=== PATIENT | male | born 1970 | race Caucasian/White ===

== ENCOUNTER 2020-01-23 14:53 | Emergency (ER) | payer OTHER, SELFPAY ==
[2020-01-23 15:05] VITALS: BP 123/94; PULSE 74; RESP 20; TEMP 37.2; O2SAT 98; BMI 24.0
--- NOTE | 2020-01-23 15:27 | HMH.EDUTC ---
[facility] [place] Clinical Impression: Dental abscess Disposition: Home, Self-Care Condition on Discharge: Good Instructions: Tooth Abscess Additional Instructions: Drink plenty of fluids. Take tylenol pain or fever. Take the medications as directed. Follow up with your dentist. GO TO THE ER FOR ANY WORSENING SYMPTOMS Prescriptions: Amoxicillin/Potassium Clav [Augmentin 875-125 Tablet] 1 tab PO Q12H 10 Days #20 tab Transmission Status: Received by [facility] Ibuprofen [Ibuprofen 800mg Tablet] 800 mg PO TIDP PRN #30 tab PRN Reason: Moderate Pain Transmission Status: [facility] Referrals: Ja Travis MD [Primary Care Provider] - Time of Disposition: 15:29 Medical Decision Making - Medical Records Medical records reviewed: No: I reviewed the patient's medical records. - [place] Inquiry Pt receiving controlled substance: No Vital Signs: 01/23/20 15:05 01/23/20 15:34 Temperature 98.9 F 98.9 F Temperature Source Oral Oral Pulse Rate 74 Pulse Rate [Right Brachial] 74 Respiratory Rate 20 20 Blood Pressure 123/94 H Blood Pressure [Right Arm] 123/94 H Blood Pressure Mean [Right Arm] 103 Blood Pressure Source Automatic Cuff Blood Pressure Source [Right Arm] Automatic Cuff Blood Pressure Position Sitting Blood Pressure Position [Right Arm] Sitting 02 Sat by Pulse Oximetry 98 Oxygen Delivery Method Room Air Room Air [facility] [place] - General Stated complaint: swollen face, tooth ache Time Seen by Provider: 01/23/20 15:28 Mode of Arrival: Family Vehicle Source of Information: Patient Limitations: No Limitations Description of Symptoms (Recalled from Triage Doc. by RN): c/o swollen face and dental pain HEENT Symptoms (Recalled from RN notes): Yes Resp Symptoms (Recalled from RN notes): No Skin Symptoms (Recalled from RN notes): No MS Symptoms (Recalled from RN notes): No Functional Status (Recalled from RN notes): n/a - History of Present Illness Provider Complaint: He c/o lower front dental pain and swelling over the past week. He has an appointment with his dentist next week. - Related Data Previous Rx's Medication Instructions Recorded Amoxicillin/Potassium Clav 1 tab PO Q12H 10 Days #20 tab 01/23/20 [Augmentin 875-125 Tablet] Ibuprofen [Ibuprofen 800mg 800 mg PO TIDP PRN #30 tab 01/23/20 Tablet] Allergies Allergy/AdvReac Type Severity Reaction Status Date / Time From VICODIN Allergy Unknown MAKES HIM Uncoded 10/03/17 15:18 MBLEED METHADONE Allergy Unknown MAKES HIM Uncoded 10/03/17 15:18 BLEED MUSCLE RELAXER Allergy Unknown MAKES HIM Uncoded 10/03/17 15:18 BLEED NSAID Allergy Unknown MAKES HIM Uncoded 10/03/17 15:18 BLEED OXYCONTN Allergy Unknown MAKES HIM Uncoded 10/03/17 15:18 BLEED - Worker's Comp Is this a Worker's Comp case?: No [facility] History - Hepatitis A Screen Drug use history?: No High risk sexual behaviors?: No History of sexually transmitted infection?: No Currently employed?: No Childcare worker?: No Do you have indoor plumbing?: Yes Do you have electricity?: Yes Attestation statement:: This patient has been screened for Hepatitis A risk factors. I have reviewed the patient's past medical history: Yes - Social History Smoking Status: Current every day smoker Tobacco Type: cigarettes # Packs/Day (cigarettes): 1 Alcohol Intake: never Occupational Status: other ROS Obtained: Yes All systems reviewed & no additional complaints - Constitutional Constitutional: Denies chills, Denies fever(s) - Eyes Eyes: Denies eye discharge - ENT Ears, Nose, Mouth, and Throat: Denies sore throat - Cardiovascular Cardiovascular: Denies chest pain Physical Exam - General General appearance: alert, in no apparent distress - Head Head exam: atraumatic, normocephalic, normal inspection - Eye Eye exam: Present: normal appearance, PERRL, EOMI - ENT ENT exam: Presen
[2020-01-23 15:34] VITALS: BP 123/94; PULSE 74; RESP 20; TEMP 37.2; O2SAT 98
== END 2020-01-23 15:35 | disposition home or self-care (01) ==
PROVIDERS: Emergency Provider Nurse Practitioner Family; PCP Internal Medicine Adolescent Medicine
DX: K04.7 Periapical abscess without sinus (principal); F17.210 Nicotine dependence, cigarettes, uncomplicated; Z88.5 Allergy status to narcotic agent; Z88.8 Allergy status to other drugs, medicaments and biological substances
CPT/HCPCS: 99201

== ENCOUNTER 2022-03-01 10:09 | Emergency (ER) | payer OTHER, SELFPAY ==
--- NOTE | 2022-03-01 10:11 | HMH.EDUTC ---
[facility] [place]ression: Dental abscess Disposition: Home, Self-Care Condition on Discharge: Good Instructions: Tooth Abscess Additional Instructions: Drink plenty of fluids. Take tylenol or ibuprofen for pain or fever. Take the medications as directed. Follow up with your regular doctor. GO TO THE ER FOR ANY WORSENING SYMPTOMS Prescriptions: Amoxicillin/Potassium Clav [Amox-Clav 875-125 mg Tablet] 1 tab PO BID #20 tab Transmission Status: [facility] Referrals: Ja Travis MD [Primary Care Provider] - Time of Disposition: 10:37 Medical Decision Making - Medical Records Medical records reviewed: No: I reviewed the patient's medical records. - [place] Inquiry Pt receiving controlled substance: No Vital Signs: 03/01/22 10:21 03/01/22 10:38 Temperature 97.7 F 97.7 F Temperature Source Oral Pulse Rate 69 Pulse Rate [Left Radial] 69 Respiratory Rate 19 19 Blood Pressure 123/78 Blood Pressure [Right Arm] 123/78 Blood Pressure Mean [Right Arm] 93 02 Sat by Pulse Oximetry 98 [facility] [place] - General Stated complaint: facial swelling Time Seen by Provider: 03/01/22 10:35 - History of Present Illness Provider Complaint: He states that he has an decayed tooth in the bottom front jaw. He has an appointment with his dentist. - Related Data Previous Rx's Medication Instructions Recorded Amoxicillin/Potassium Clav 1 tab PO Q12H 10 Days #20 tab 01/23/20 [Augmentin 875-125 Tablet] Ibuprofen [Ibuprofen 800mg 800 mg PO TIDP PRN #30 tab 01/23/20 Tablet] Amoxicillin/Potassium Clav 1 tab PO BID #20 tab 03/01/22 [Amox-Clav 875-125 mg Tablet] Allergies Allergy/AdvReac Type Severity Reaction Status Date / Time From VICODIN Allergy Unknown MAKES HIM Uncoded 10/03/17 15:18 MBLEED METHADONE Allergy Unknown MAKES HIM Uncoded 10/03/17 15:18 BLEED MUSCLE RELAXER Allergy Unknown MAKES HIM Uncoded 10/03/17 15:18 BLEED NSAID Allergy Unknown MAKES HIM Uncoded 10/03/17 15:18 BLEED OXYCONTN Allergy Unknown MAKES HIM Uncoded 10/03/17 15:18 BLEED [facility] History - Hepatitis A Screen Attestation statement:: This patient has been screened for Hepatitis A risk factors. I have reviewed the patient's past medical history: Yes - Social History Smoking Status: Current every day smoker Tobacco Type: cigarettes # Packs/Day (cigarettes): 1 Alcohol Intake: never Occupational Status: other ROS Obtained: Yes All systems reviewed & no additional complaints - Constitutional Constitutional: Denies chills, Denies fever(s) - ENT Ears, Nose, Mouth, and Throat: Reports as per HPI, Denies sore throat Physical Exam - General General appearance: alert, in no apparent distress - Head Head exam: atraumatic, normocephalic, normal inspection - Eye Eye exam: Present: normal appearance, PERRL, EOMI - ENT ENT exam: Present: mucous membranes moist, TM's normal bilaterally, normal external ear exam - Expanded ENT Exam Nose exam: Absent: sinus tenderness Nasal speculum exam: Bilateral: normal Teeth exam: Present: dental caries, gingival swelling Throat exam: Present: tonsillar erythema - Neck Neck exam: Present: normal inspection, full ROM, trachea midline. Absent: meningismus, lymphadenopathy - Chest Chest inspection: Present: normal inspection, symmetric chest wall rise. Absent: tenderness - Respiratory Respiratory exam: Present: normal lung sounds bilaterally. Absent: respiratory distress - Cardiovascular Cardiovascular exam: Present: regular rate, normal rhythm. Absent: JVD - Abdominal Exam Abdominal exam: Present: soft, normal bowel sounds. Absent: distention, tenderness, guarding - Extremities Exam Extremities exam: Present: normal inspection, full ROM, normal capillary refill. Absent: calf tenderness - Back Exam Back exam: Present: normal inspection. Absent: tenderness - Neurological Exam
[2022-03-01 10:21] VITALS: BP 123/78; PULSE 69; RESP 19; TEMP 36.5; O2SAT 98; BMI 22.5
[2022-03-01 10:38] VITALS: BP 123/78; PULSE 69; RESP 19; TEMP 36.5
== END 2022-03-01 10:41 | disposition home or self-care (01) ==
PROVIDERS: Emergency Provider Nurse Practitioner Family; PCP Internal Medicine Adolescent Medicine
DX: K04.7 Periapical abscess without sinus (principal)
CPT/HCPCS: 99212; G0463